=== PATIENT | male | born 1950 ===

== ENCOUNTER 2022-02-08 09:00 | Inpatient (IN) | payer OTHER ==
[~2022-02-08] VITALS: Ht 167.6 cm; Wt 86.6 kg
[2022-02-08] MEDS ORDERED: TAPAZOLE5 MG PO ×2 (12:35→12:36)
[2022-02-08] MEDS ORDERED: GEMFIBROZIL600 MG PO (12:36)
[2022-02-08] MEDS ORDERED: ZETIA10 MG PO (12:37)
[2022-02-14] MEDS ORDERED: VALSARTAN-HCTZ1 EAC1 (11:52)
[2022-02-14] MEDS ORDERED: GABAPENTIN100 M2 (11:52)
[2022-02-14] MEDS ORDERED: VITAMIN B-121000 MCG (11:52)
[2022-02-14] MEDS ORDERED: VITAMIN D350 MC4 (11:52)
== END 2022-02-15 17:08 | disposition home or self-care (01) | DRG 395 ==
LOC: SURG 02-14 07:00 → O/R 02-14 08:55 → SURH 02-14 08:55 → SURG 02-14 09:00 → SURH 02-14 23:44
PROVIDERS: ADMIT Colon & Rectal Surgery; ATTEND Colon & Rectal Surgery
PROC: 0DJD8ZZ Inspection of Lower Intestinal Tract, Via Natural or Artificial Opening Endoscopic (ICD-10-PCS; 2022-02-14)
PROC: 0DBP8ZZ Excision of Rectum, Via Natural or Artificial Opening Endoscopic (ICD-10-PCS; principal; 2022-02-14 07:00)
DX: D12.8 Benign neoplasm of rectum (principal); Z20.822 Contact with and (suspected) exposure to COVID-19; K62.82 Dysplasia of anus